=== PATIENT | female | born 1970 | race Caucasian/White ===

== ENCOUNTER → 2018-06-02 | Day surgery (SDC) | payer OTHER ==
[~2018-06-02] VITALS: Ht 162.6 cm; Wt 110.2 kg
--- NOTE | 2018-06-02 08:10 | History & Physical Pre-Op ---
General Information and HPI History of Present Illness: Krystal is a 48-year-old female with a long-standing and worsening complaint of painful hallux limitus right foot. The patient has undergone an extended course of conservative care, including shoe gear and activity modification, rest, immobilization and course of NSAIDs. None of this has yielded her any significant relief. The patient presents today for preoperative surgical consultation. Allergies/Medications Allergies: Coded Allergies: Fish Containing Products (anaphylaxis 05/29/18) Uncoded Allergies: SHELL FISH (anaphylaxis 05/29/18) Past History Medical History Cardiovascular: hypertension Endocrine: diabetes Surgical History Pertinent Surgical History: spinal fusion Review of Systems Review of Systems: Unremarkable except for that noted in history present illness Exam & Diagnostic Data Physical Exam: Lungs clear bilaterally. Heart sounds rate and rhythm regular. Lower extremity physical exam demonstrates intact pedal pulses bilaterally. Both the dorsalis pedis and posterior tibial arteries are palpable bilaterally. Patient without any sensorimotor deficits. Deep tendon reflexes are grossly intact. Patient is noted to have pain with palpation or range of motion to the right first metatarsophalangeal joint. Range of motion is noted to be diminished particularly dorsiflexion. No crepitus identified. Assessment/Plan Assessment/Plan: Hallux limitus right foot. A lengthy discussion reviewing both surgical and conservative options with the patient at bedside and the patient elected to go forward with surgery despite the risks. As Ranked By This Provider Problem List: 1. Hallux rigidus of right foot Attending MD Review Statement Attending Statement Attending MD Statement: examined this patient
--- NOTE | 2018-06-02 10:04 | Operative Report ---
Operative/Inv Procedure Report Surgery Date: 06/02/18 Name of Procedure: 1 cheilectomy right first metatarsophalangeal 2 intraoperative menstruation Hernán block anesthesia Pre-Operative Diagnosis: 1 hallux limitus right Post-Operative Diagnosis: The same Estimated Blood Loss: scant Surgeon/Vine Pruner: Rahul Pollard DPM Anesthesia: moderate sedation, block Operative/Procedure Note Note: After obtaining informed consent the patient was brought to the operating room placed on the operating table in the supine position. The patient was then securely fastened to the operating table utilizing a safety belt. After menstruation of IV sedation, 10 cc of 0.5% Marcaine plain was evaluated by the patient's right ankle. A well-padded ankle tourniquet was placed about the patient's right lower extremity. 2 g of Ancef were delivered intravenously 1 dose. The right foot was then scrubbed, prepped and draped in the usual aseptic manner. The right lower extremity is elevated to exsanguinate the limb, at which point the ankle tourniquet inflated 250 mmHg. Attention to the dorsal aspect of the right foot, where a 6 cm linear incision made just medial to the course of the extensor hallucis longus tendon. The dissection was then carried down septations tissues, were all vital neurovascular structures were identified and protected. A linear capsulotomy was then performed exposing the medial and dorsal exostoses. These were then removed with a sagittal bone saw. Any rough edges identified and the margins were smooth. Inspection of the metatarsophalangeal joint demonstrated intact cartilaginous surfaces on the head metatarsal and the base of proximal phalanx. The open wound was then irrigated, spots in normal sterile saline. The capsular structures reapproximated 3-0 Vicryl and the septations was to be approximately 4-0 Vicryl. The skin is approximate 4-0 Monocryl. The incision was dressed with Steri-Strips, Xeroform, 4 x 4's, Kerlix and Luis wrap. The patient noted tolerate both procedure and anesthesia well and the patient was transferred to the operating room to recovery device in stable vessel status intact all digits right foot.
== END ==
LOC: STS 01:44
DX: M20.21 Hallux rigidus, right foot (principal); M20.5X1 Other deformities of toe(s) (acquired), right foot; E11.9 Type 2 diabetes mellitus without complications; Z79.84 Long term (current) use of oral hypoglycemic drugs; I10 Essential (primary) hypertension
CPT/HCPCS: 81025; 88304; J0131; J0690; J2001; J2250